=== PATIENT | male | born 1970 | race Caucasian/White ===

== ENCOUNTER 2019-12-05 03:52 | Observation (INO) | payer OTHER, SELFPAY ==
[2019-12-05] VITALS (15 sets, daily range): BP systolic 104–163; BP diastolic 70–112; PULSE 70–117; RESP 16–18; TEMP 36.2–37.1; O2SAT 95–99; BMI 24.0; BMI 25.5
--- NOTE | 2019-12-05 04:01 | CT_ITS ---
We are attempting to reach an attending provider to discuss findings. An addendum with communication details will be sent when the communication is complete. STUDY: CT ABDOMEN AND PELVIS WITH CONTRAST REASON FOR EXAM: Male, 49 years old patient with right lower quadrant abdominal pain and vomiting since 5 pm. Patient has elevated WBC count. RADIATION DOSAGE (If Supplied By Facility): CTDIvol = ( 26.2 ) mGy, DLP = ( 500.82 ) mGycm TECHNIQUE: Transaxial images were obtained from the dome of the diaphragm to the symphysis pubis without oral contrast. 100 ml of IV Isovue-300 was administered. Sagittal and coronal images were reconstructed. Individualized dose optimization techniques were used for this CT. COMPARISON: Prior comparison studies are not available for review at this time. FINDINGS: The visualized lung bases are unremarkable. The visualized portions of the heart are within normal limits. There are small hepatic cysts within the right lobe of liver with the largest measuring 7 mm in greatest dimension. Normal gallbladder and extrahepatic biliary system. Normal spleen. Normal pancreas. Normal bilateral adrenal glands. Normal right kidney. Normal left kidney. Normal visualized stomach. There is no evidence for dilated bowel, ascites or pneumoperitoneum. The small bowel has a grossly normal appearance. Descending and sigmoid colon is not distended which gives the appearance of thickened kelley. There is also localized narrowing of the mid transverse colon where there is abnormal thickening of the kelley. This may be the result of localized spasm versus a stricture. Most of the stool is visible in the right colon. There is a tubular, thick-walled appendix (>7mm), consistent with acute appendicitis. There is acute inflammation adjacent to the abnormal appendix. There is also an appendicolith at the base of the appendix. Normal abdominal aorta. There is venous distention of the inferior vena cava (IVC). Normal retroperitoneum. Normal urinary bladder. Normal abdominal wall. Normal osseous structures. CT/Abdomen/Pelvis W IV Cont ONLY IMPRESSION: 1. CT findings are consistent with acute uncomplicated appendicitis. 2. Questionable stricture versus spasm of the mid transverse colon. Electronically Signed: Denise Del Cid MD at 5:21 EST , Service support ,
--- NOTE | 2019-12-05 04:02 | ED.VIS.GEN ---
History of Present Illness Chief Complaint: Abd Pain Informant: Patient Narrative: Patient presents with lower abdominal pain for last 9 hours. Associated with multiple dry heaves. No vomiting. Normal bowel movements. Never had this before. No fevers or chills. Ate some chicken noodle soup for dinner. Current severity is moderate to severe. No home treatment. Hurts to push on it. Denies medical problems Past Medical History - Allergies and Home Meds Allergies/Adverse Reactions: Allergies erythromycin base Adverse Reaction (Verified 12/05/19 03:55) Vomiting Penicillins [PCN] Adverse Reaction (Verified 12/05/19 03:55) Unknown Primary Care Physician: [facility] [Primary Care Provider] - Prior records reviewed: Yes Past Medical History: None Surgical History: noncontributory Lives: With Family Smoking Status: Never smoker Alcohol: None Drugs: None Review of Systems General: Denies: Chills, Fever, Sweats Eyes: Denies: Visual changes - bilaterally, Diplopia ENT: Denies: Rhinorrhea, Sore throat Cardiovascular: Denies: Chest pain, Palpitations Respiratory: Denies: Dyspnea, Cough, Dyspnea on exertion Gastrointestinal: Reports: Abdominal pain, Nausea, - - Dry heaves. Denies: Vomiting, Diarrhea, Melena, Hematochezia Genitourinary: Denies: Dysuria, Hematuria, Frequency Musculoskeletal: Denies: Back pain, Extremity Pain Skin: Denies: Rash, Wounds Neurological: Denies: Headache, Weakness, Numbness Physical Exam Vital Signs/Narrative: Vital Signs Temp Pulse Resp BP Pulse Ox 12/05/19 03:53 97.2 F L 70 18 163/89 H 98 General: Well nourished, Well developed, No Acute Distress Head: Normocephalic, Atraumatic Eyes: Perrl, EOMI ENT: Moist mucous membranes, No rhinorrhea Neck: Supple, Nontender Cardiovascular: Regular rate, Regular rhythm, No murmurs Respiratory: No distress, CTA bilaterally, Chest nontender Abdomen: Soft, Nondistended, Normal bowel sounds, Tender - Tender in the periumbilical suprapubic and right lower quadrant. Negative for: Rebound tenderness, Grande's sign Back: Nontender, Normal Inspection Extremities: Nontender, No edema Skin: Normal color, No rash Neurological: Alert, Oriented x3, Cranial nerves II-XII grossly intact, Normal Strength, Normal Sensation Psychological: Normal affect, Normal Mood Diagnostic/Tx/Re-eval Impressions Abdomen/Pelvis CT 12/05/19 04:01 IMPRESSION: 1. CT findings are consistent with acute uncomplicated appendicitis. 2. Questionable stricture versus spasm of the mid transverse colon. Electronically Signed: Denise Del Cid MD at 5:21 EST , Service support , 12/05/19 04:01 Abdomen/Pelvis W IV Cont ONLY [CT] Stat Laboratory Results 12/05/19 12/05/19 04:00 04:00 WBC 17.7 H RBC 4.93 Hgb 14.9 Hct 43.8 MCV 88.8 MCH 30.2 MCHC 34.0 RDW Std Deviation 40.0 RDW Coeff of John 12.2 Plt Count 271 MPV 11.1 Immature Gran % (Auto) 0.500 Neut % (Auto) 87.2 H Lymph % (Auto) 6.7 L [place] % (Auto) 4.5 Eos % (Auto) 0.6 Baso % (Auto) 0.5 Absolute Neuts (auto) 15.5 H Absolute Lymphs (auto) 1.18 Nucleated RBC % 0 Reactive Lymphocytes 1+ Platelet Estimate ADEQUATE RBC Morphology NORM C+C Sodium 136 Potassium 3.5 Chloride 104 Carbon Dioxide 25.0 Anion Gap 7 BUN 18 Creatinine 1.11 Estim Creat Clear Calc 74.44 Est GFR (MDRD) Af Amer 90 Est GFR (MDRD) Non-Af 74 BUN/Creatinine Ratio 16.2 Glucose 142 H Calcium 9.2 Total Bilirubin 1.20 H AST 14 L ALT 23 Alkaline Phosphatase 91 Total Protein 8.5 H Albumin 4.4 Globulin 4.1 Albumin/Globulin Ratio 1.1 Lipase 102 - Medical Decision Making Given IV fluids Zofran Toradol and morphine. Lab work and CT abdomen pelvis with IV contrast obtained. Patient felt significantly better after treatment. Lab work shows a significant leukocytosis with left shift. Electrolytes renal function hepatic function and lipase unremarkable. CT shows a acute appendicitis with no perforation. Suspected spasm in the transverse colon noted as well. [facility] to do [facility] or beds at this time. They stated he should stay here. Patient discussed with our on-call surgeon Dr. Neil. Will be started on antibiotics and admitted ED Disposition - Plan for ED Patient: Disposition: Acute Care Hospital [facility] Diagnosis: Acute appendicitis
[2019-12-05 04:08] LABS: Absolute Lymphocyte Count 1.18 X10^3/uL (0.83-4.51); Absolute Neutrophil Count 15.5 X10^3/uL (2.0-7.7); Basophil# 0.08 X10^3/uL; Basophil% 0.5 % (0-1); Eosinophils% 0.6 % (0-5); Hematocrit 43.8 % (40-54); Hemoglobin 14.9 g/dL (13.0-16.5); Lymphocyte # 1.18 X10^3/ul (4.0); Lymphocyte % 6.7 % (19-41); Mean Corpuscular Hgb 30.2 pg (27.0-32.0); Mean Corpuscular Volume 88.8 fL (80-94); Mean Platelet Vol. 11.1 fl (6.2-12.0); Monocyte# 0.79 X10^3/uL; Monocyte% 4.5 % (0-10); NRBC Flagged by Analyzer 0 % (0-5); Neutrophil # 15.46 X10^3/uL (2.7-7.7); Neutrophil % 87.2 % (47-70); POSITIVE MORPHOLOGY YES; Platelet Count 271 K/mm3 (150-450); RBC Distribution Width CV 12.2 % (11.6-14.6); Red Blood Count 4.93 M/mm3 (4.6-6.2); White Blood Count 17.7 K/mm3 (4.4-11.0)
[2019-12-05] MEDS: Ondansetron 4 MG/2 ML Vial IV (04:09)
[2019-12-05] MEDS: Ketorolac 30 MG/ML Syringe IV (04:09)
[2019-12-05] MEDS: 0.9% Normal Saline 1,000 ML 1000 ML IV (04:09)
[2019-12-05 04:10] LABS: Differential Indicated SCAN CRITERIA MET
[2019-12-05] MEDS: Morphine 4 MG/ML Syringe IV (04:10)
[2019-12-05 04:23] LABS: ALB/GLOB Ratio 1.1 RATIO (0.9-2.4); AST(SGOT) 14 U/L (15-37); Alanine Aminotransfer ALT/SGPT 23 U/L (16-61); Albumin, Serum 4.4 g/dL (3.2-5.0); Alkaline Phosphatase 91 U/L (45-117); Anion Gap 7 (5-15); BUN 18 mg/dL (7-18); BUN/Creat Ratio 16.2 RATIO (10-20); Calcium,Total 9.2 mg/dL (8.5-10.1); Chloride 104 mmol/L (98-107); Creatinine, Serum 1.11 mg/dL (0.70-1.30); EST Glomerular Filtration Rate 74 mL/min (>60); Est Glom Filt Rate - Afr Amer 90 mL/min (>60); Estimated Creatinine Clearance 74.44 ml/min; Globulin 4.1 g/dL (2.2-4.2); Glucose 142 mg/dL (74-106); Lipase 102 U/L (73-393); Potassium 3.5 mmol/L (3.5-5.1); Protein, Total 8.5 g/dL (6.4-8.2); Sodium Level 136 mmol/L (136-145)
[2019-12-05 04:28] LABS: Platelet Estimate ADEQUATE (ADEQ); Reactive Lymphocyte 1+; Red Cell Morphology NORM C+C NORMAL (NORM C&C)
--- NOTE | 2019-12-05 05:24 | NURSING ---
TALKED TO THE [facility] AND THEY ASKED FOR A CHART TO BE FAXED BUT WE CAN KEEP PATIENT HERE FOR SURGERY.
[2019-12-05] MEDS: Ciprofloxacin 400 MG/200 ML BAG 200 MG IV (05:41)
[2019-12-05] MEDS: metroNIDAZOLE 500 MG/100 ML BAG 100 MG IV (05:58)
--- NOTE | 2019-12-05 05:58 | PCM.HP.STD ---
History of Present Illness Date of Admission: 12/05/19 The patient is a 49 year old M presented to the ER due to right lower quadrant pain which started at 5 PM yesterday. Patient did have nausea and vomiting with this. Last ate prior to [address] abdomen pelvis consistent with acute appendicitis, leukocytosis of 17. Patient is given Cipro & Flagyl IV in the ER for acute appendicitis. Patient has never had a colonoscopy. Past Medical History Allergies erythromycin base Adverse Reaction (Verified 12/05/19 03:55) Vomiting Penicillins [PCN] Adverse Reaction (Verified 12/05/19 03:55) Unknown Home Medications: Ambulatory Orders Medication Instructions Recorded NK 12/05/19 Surgical History: no surgical history Psychiatric History: No pertinent psych hx Lives: With Family Smoking Status: Never smoker Alcohol: None Drugs: None - *Family History Maternal History Items: No pertinent history Review of Systems Constitutional: Reports: Anorexia Eyes: Denies: Blurred vision HEENT: Denies: Difficulty Swallowing Cardiovascular: Denies: Chest Pain Respiratory: Denies: Shortness of Breath Gastrointestinal: Reports: Abdominal Pain, Nausea, Vomiting VTE Information - Inpt Only VTE Present on Admission: Yes VTE Mechan Device Prophylaxis: SCD's Patient Problems: Active and Suspected Problems Acute appendicitis (Acute) - Physical Exam Vitals/I&O's: Vital Signs Temp Pulse Resp BP Pulse Ox 98.3 F 96 18 131/86 H 95 12/05/19 05:45 12/05/19 05:45 12/05/19 05:45 12/05/19 05:45 12/05/19 05:45 Oxygen Delivery Method Room Air Weight: 153 lb 7.068 oz Body Mass Index (BMI) 24.0 General: Alert, Oriented x3, Cooperative, No apparent distress HEENT: Atraumatic Lungs: Normal air movement Cardiovascular: Regular rate Abdomen: Soft, Non-Distended, Tender - Right lower quadrant, no peritoneal signs Extremities: No clubbing, No cyanosis, No edema Neurological: Cranial nerves II-XII grossly intact Psych/Mental Status: Normal Affect Laboratory Results 12/05/19 04:00: WBC 17.7 H, RBC 4.93, Hgb 14.9, Hct 43.8, MCV 88.8, MCH 30.2, MCHC 34.0, RDW Std Deviation 40.0, RDW Coeff of John 12.2, Plt Count 271, MPV 11.1, Immature Gran % (Auto) 0.500, Neut % (Auto) 87.2 H, Lymph % (Auto) 6.7 L, [place] % (Auto) 4.5, Eos % (Auto) 0.6, Baso % (Auto) 0.5, Absolute Neuts (auto) 15.5 H, Absolute Lymphs (auto) 1.18, Nucleated RBC % 0, Reactive Lymphocytes 1+, Platelet Estimate ADEQUATE, RBC Morphology NORM C+C 12/05/19 04:00: Sodium 136, Potassium 3.5, Chloride 104, Carbon Dioxide 25.0, Anion Gap 7, BUN 18, Creatinine 1.11, Estim Creat Clear Calc 74.44, Est GFR (MDRD) Af Amer 90, Est GFR (MDRD) Non-Af 74, BUN/Creatinine Ratio 16.2, Glucose 142 H, Calcium 9.2, Total Bilirubin 1.20 H, AST 14 L, ALT 23, Alkaline Phosphatase 91, Total Protein 8.5 H, Albumin 4.4, Globulin 4.1, Albumin/Globulin Ratio 1.1, Lipase 102 Current Medications Ciprofloxacin (Cipro) 400 mg in 200 mls @ 200 mls/hr IV X1 ONE Stop: 12/05/19 06:28 Last Admin: 12/05/19 05:41 Dose: 200 mls/hr Documented by: Metronidazole (Flagyl) 500 mg in 100 mls @ 100 mls/hr IV X1 ONE Stop: 12/05/19 06:29 Assessment/Plan All Active Problems Acute appendicitis (Acute) 49-year-old male with acute appendicitis 1. Discussed procedure laparoscopic appendectomy, possible open, possible bowel resection along with the risk but not limited to bleeding, infection/abscess, injury to another organ (small bowel, colon, etc.), adhesion, hernia at incision sites, and anesthesia. Patient no further questions this time. We will proceed to the OR this morning. Lanny Neil M.D. Pager: [phone] [facility] [address] [place] [address], [address] [place] [address] Office: [phone] Code Visit Inpatient E&M: 52568 Init Hosp L1
--- NOTE | 2019-12-05 06:29 | ED.RN ---
THIS NURSE TOOK THIS PATIENT DOWN TO SURGERY. PATIENT WAS TRYING TO GET A HOLD OF HIS SISTER TO COME UP TO THE HOSPITAL. DR. TRNOCOSO MET US AT THE ENTRANCE TO THE OR SUITES.
[2019-12-05] MEDS: Bupiv/Epi 0.5% Mpf 30 ML Vial (07:25)
--- NOTE | 2019-12-05 07:30 | APP_PTH ---
PATIENT: JUANITO TOLEDO Jr. LOC: MS3 U#:[id number] AGE/SX: 49/M ROOM: VT318 RE12/05/[address]: Dr. Lanny Neil MD : 1970 BED: 1 DIS: 12/05/2019 SPEC #: [id number] RECD: 12/05/19 13:25 STATUS: SUZY REQ #: [id number] ANNA: 12/05/19 07:[address]: Lanny Neil DEPT: SURGICAL PATHOLOGY RECD BY: Gertrude Cota ENTERED: 12/05/19 14:48 SP TYPE: APPENDIX OTHR DR: MD La Nena Penaloza [facility] Tissues: Appendix, NOS Procedures: Surgery Specimen Level III HEADER OPERATION: Laparoscopic appendectomy PRE-OP DIAGNOSIS: Acute appendicitis TISSUE SUBMITTED: Appendix MICROSCOPIC DIAGNOSIS Appendix, appendectomy: Acute appendicitis and periappendicitis. SJ:raphael 12/06/19 MICROSCOPIC DESCRIPTION Slides are reviewed. GROSS DESCRIPTION Received is one container labeled with the patient's name and designated appendix. The specimen consists of a C-shaped appendix measuring 9 cm in length and up to 2.2 cm in diameter. The attached periappendiceal adipose tissue measures up to 1.5 cm in width. The serosa is congested. No obvious perforation is identified. The lumen is filled with fecal material. No fecalith is identified. Liquor Store Manager sections are submitted in one cassette. / OWEN:raphael 12/05/19 TC:2 CPT: 27445
--- NOTE | 2019-12-05 07:30 | PCM.OPRPT ---
Report of Operation Date of Procedure: 12/05/19 Pre-Operative Diagnosis: Acute appendicitis Post-Operative Diagnosis: Same Surgery/Procedure Performed:: Laparoscopic appendectomy Type of Anesthesia:: General/Supplemental Anesthesiologist: Zoran Shannon Special Medications: Cipro 400 mg and Flagyl 500 mg IV x1 given for acute appendicitis in the ER Specimen's removed: Appendix Estimated Blood Loss (mL): 10 cc Fluids Replaced: 1000 cc Description of Procedure: Indications: 49-year-old male presented to the ER with new right lower quadrant pain this morning. On workup he was found to have acute appendicitis on CT and a leukocytosis of 17. Patient was started on antibiotics in the ER for acute appendicitis-Cipro 400 mg x 1 and Flagyl 500 mg x 1. Description of the procedure: The patient was placed on operating table in supine position. General anesthesia was induced. A timeout was completed verifying correct patient, procedure, position and special equipment prior to beginning procedure. A Wolf catheter was placed. Abdomen was prepped and draped in usual sterile fashion. Incision was made in the natural skin line above the umbilicus with a 15 blade scalpel. The fascia was elevated and incised. Entry into the peritoneum was confirmed visually and no bowel was noted in the vicinity of the incision. The Zimmerman trocar was placed under direct vision. Abdomen insufflated with a pressure of 12-15 mmHg. Patient tolerated insertion well. The scope was inserted and the abdomen inspected. No injuries from initial trocar placement were noted. Minimal amount of fluid was seen in the right lower quadrant. An direct visualization 2 -5 mm trocars were placed one above the symphysis pubis and below the hairline and one in the left lower quadrant lateral to the rectus muscle. Care is taken to avoid injury to the bladder and inferior epigastric vessels. The table was placed in Trendelenburg position with the right side elevated. The appendix was grasped with atraumatic grasper and elevated. It was noted to be inflamed with a small amount of purulent material on the appendix. A window was developed in the mesoappendix at the point between the base of the appendix and the cecum. An endoscopic 45 mm linear cutting stapler blue load was then used to divide and staple the base of the appendix. Enseal was used to divide the mesoappendix. The appendix was withdrawn into the Zimmerman trocar after being placed endoscopically retrieval bag. Appendix was sent to pathology. The appendiceal stump was then irrigated and hemostasis was assured. Fluid was suctioned no other pathology was identified. Secondary trochars were removed under direct visualization. No bleeding was noted trocar sites. The laparoscope withdrawn and the umbilical trocar removed. The abdomen was allowed to collapse. Local anesthesia of 25 mL of 0.5% Marcaine was used at the incision sites. The umbilical trocar site was closed with the [id number] 0 Vicryl suture. The skin was closed up to clear sutures of 4-0 Monocryl and Steri-Strips. The patient was extubated. The patient tolerated the procedure well and was taken to the postanesthesia care unit in satisfactory condition. - Complications None
--- NOTE | 2019-12-05 07:32 | EKGRS_ITS ---
Test Reason : RHYTHYM CHANGE Blood Pressure : / mmHG Vent. Rate : 096 BPM Atrial Rate : 096 BPM P-R Int : 172 ms QRS Dur : 092 ms QT Int : 378 ms P-R-T Axes : 065 043 061 degrees QTc Int : 477 ms Normal sinus rhythm Normal ECG Confirmed by VANIA PAZ, JAILYN ([id number]), legal editor DESHAWN ROPER ([id number]) on 12/06/2019 12:34:40 PM Referred By: KARYNA Confirmed By:JAILYN CARO MD
--- NOTE | 2019-12-05 07:48 | PCM.PN.BLA ---
Progress Note At the end of case patient did go into SVT with heart rate of 144. Patient does not have any past medical history and does see a doctor yearly at the [facility]. Patient has not have an EKG prior to surgery. Will obtain EKG, BMP, magnesium in the PACU. Did consult to Dr. Og with cardiology as well. In PACU patient's heart rate was in the 110s and did drop to below 100 after about 10 or 15 minutes., Electrolytes are within normal limits and troponin was negative STROKE Vital Signs/Narrative: Vital Signs Temp Pulse Resp BP Pulse Ox 12/05/19 07:45 104 H 16 132/82 H 99 12/05/19 07:41 98.3 F 117 H 16 131/112 H 98 12/05/19 05:49 98.3 F 91 18 131/86 H 96 12/05/19 05:45 98.3 F 96 18 131/86 H 95 12/05/19 03:53 97.2 F L 70 18 163/89 H 98
--- NOTE | 2019-12-05 08:06 | ECHOD_ITS ---
Reason For Study: Arrhythmia Procedure This was a 2D Doppler, Color Flow transthoracic echocardiogram. Exam performed portable in patient room. Left Ventricle Normal LV size. Left ventricular systolic function is normal. The estimated ejection fraction is 60 %. No regional wall motion abnormalities noted. Right Ventricle Normal RV size. Normal systolic function. Atria Normal left atrium. Normal right atrium. Mitral Valve Normal mitral valve. Tricuspid Valve Normal tricuspid valve. Mild tricuspid valve insufficiency. Aortic Valve The aortic valve is not well visualized. Pulmonic Valve Normal pulmonic valve. Great Vessels Normal aortic root. The pulmonary artery is normal size. Normal inferior vena cava. Pericardium/Pleural No pericardial effusion. MMode/2D Measurements & Calculations LVIDd: 4.2 cm IVSd: 0.77 cm Ao root diam: 3.0 cm LVIDs: 2.6 cm LVPWd: 0.77 cm RVDd: 3.1 cm FS: 37.4 % LAV(MOD-bp): 25.7 ml LA A4 area: 10.7 cm2 LA dimension(2D): 2.6 cm LAV(MOD-bp) Indexed: 14.2 ml/m2 LAV(MOD-sp2): 27.6 ml LAV(MOD-sp4): 21.5 ml RA A4 area: 13.4 cm2 Time Measurements MV dec time: 0.22 sec Doppler Measurements & Calculations MV E max kevin: 83.9 cm/sec Lat Peak E' Kevin: 12.3 cm/sec Med Peak E' Kevin: 9.9 cm/sec MV A max kevin: 63.5 cm/sec E/E' lat: 6.8 E/E' med: 8.4 MV E/A: 1.3 Ao V2 max: 154.6 cm/sec LV V1 max: 138.7 cm/sec TV V2 max: 206.5 cm/sec Ao max P.6 mmHg LV V1 max P.7 mmHg TV max P.0 mmHg PA V2 max: 134.1 cm/sec TR max kevin: 199.1 cm/sec TR max P.9 mmHg Interpretation Summary Normal LV size. Left ventricular systolic function is normal. The estimated ejection fraction is 60 %. Mild tricuspid valve insufficiency. Ordering Physician: Chad Og Performed By: Maggi Kumari, WADE, RVT
[2019-12-05] MEDS: Lactated Ringers 1,000 ML 130 ML IV ×2 (08:15→10:21)
--- NOTE | 2019-12-05 08:15 | CON.PCM_ITS ---
Reason for Consult Date of Consultation: 12/05/19 Reason for Consultation: Fast heart rate History of Present Illness: The patient is a 49 year old M with no previous cardiac history who presented to the emergency room with right lower quadrant pain and was diagnosed as having acute appendicitis. He underwent appendectomy this morning. Shortly after the surgery was completed patient was noted to have short bursts of rapid narrow complex tachycardia. The above was asymptomatic. He has had no chest pain or shortness of breath or paroxysmal nocturnal dyspnea pedal edema he has had, to the best of his knowledge none of this previously. An EKG was done which demonstrated normal sinus rhythm with no acute changes I was called by the surgeon for further evaluation and management. Preoperative laboratory tests demonstrated a potassium of 3.5. The patient was seen in the postanesthesia care unit. [] Past Medical History Allergies/Adverse Reactions: Allergies erythromycin base Adverse Reaction (Verified 12/05/19 03:55) Vomiting Penicillins [PCN] Adverse Reaction (Verified 12/05/19 03:55) Unknown Home Medications: Ambulatory Orders Medication Instructions Recorded Oxycodone HCl/Acetaminophen 1 - 2 tab PO Q6H PRN PRN 4 Days 12/05/19 [Percocet 5/325] #20 tab Surgical History: no surgical history Psychiatric History: No pertinent psych hx - *Family History Maternal History Items: No pertinent history Lives: With Family Smoking Status: Never smoker Alcohol: None Drugs: None Review of Systems - Review of Systems General: Denies: Fever, Night Sweats, Fatigue HEENT: Denies: Vision Change Cardiovascular: Denies: Chest Discomfort, Shortness of Breath, Orthopnea, PND, Peripheral Edema, Palpitations, Lightheadedness, Dizziness, Near Syncope, Syncope Respiratory: Denies: Cough, Sputum Production, Hemoptysis Gastrointestinal: Denies: Hematemesis, Hematochezia, Melena Genitourinary: Denies: Dysuria, Hematuria Skin: Denies: Rash Neurological: Denies: Dizziness Psychiatric: Denies: Anxiety Endocrine: Denies: Heat Intolerance Objective: Vital Signs Temp Pulse Resp BP Pulse Ox 98.3 F 98 16 124/86 H 98 12/05/19 07:41 12/05/19 08:00 12/05/19 08:00 12/05/19 08:00 12/05/19 08:00 Oxygen Delivery Method Room Air Weight: 153 lb 7.068 oz Body Mass Index (BMI) 24.0 Intake and Output for Last 24 Hours 12/03/19 12/04/19 12/05/19 23:59 23:59 23:59 Intake Total 1300 / 1300 Balance 1300 / 1300 12/05/19 04:00: WBC 17.7 H, RBC 4.93, Hgb 14.9, Hct 43.8, MCV 88.8, MCH 30.2, MCHC 34.0, Plt Count 271, MPV 11.1, Immature Gran % (Auto) 0.500, Neut % (Auto) 87.2 H, Lymph % (Auto) 6.7 L, [place] % (Auto) 4.5, Eos % (Auto) 0.6, Baso % (Auto) 0.5, Absolute Neuts (auto) 15.5 H, Nucleated RBC % 0 12/05/19 04:00: Sodium 136, Potassium 3.5, Chloride 104, Carbon Dioxide 25.0, Anion Gap 7, BUN 18, Creatinine 1.11, Est GFR (MDRD) Af Amer 90, Est GFR (MDRD) Non-Af 74, BUN/Creatinine Ratio 16.2, Glucose 142 H, Calcium 9.2, Total Bilirubin 1.20 H Rhythm: EKG: ECHO: Stress Test: Cardiac Cath: PCI: CT Surgery: Holter monitor: EPS: PPM: CXR: Chest CT Scan: Assessment/Plan 1. Paroxysmal atrial tachycardia * Patient presents with postoperative paroxysmal atrial tachycardia. My recommendation at this time would be to obtain an echo and assess his left ventricular function. I would not recommend starting him on any beta-anali at this particular time. Repeat magnesium and potassium level is pending. And depending on the results of the above further recommendations will be made. * He can be transferred to the third floor on telemetry monitoring. The above has been discussed with the patient, the PACU nurses, and the surgeon. * If he has further tachycardia I would recommend short small aliquots of intravenous beta-anali until patient can take orally. * * Thank you for allowing me to participate in the care of your patient. Please don't hesitate to call if any issues arise
[2019-12-05 08:33] LABS: Anion Gap 5 (5-15); BUN 15 mg/dL (7-18); BUN/Creat Ratio 14.7 RATIO (10-20); Calcium,Total 8.2 mg/dL (8.5-10.1); Chloride 106 mmol/L (98-107); Creatinine, Serum 1.02 mg/dL (0.70-1.30); EST Glomerular Filtration Rate 82 mL/min (>60); Est Glom Filt Rate - Afr Amer 99 mL/min (>60); Glucose 146 mg/dL (74-106); Magnesium 1.7 mg/dL (1.6-2.6); Potassium 3.7 mmol/L (3.5-5.1); Sodium Level 137 mmol/L (136-145)
--- NOTE | 2019-12-05 11:19 | DCINST_ITS ---
Discharge Diet: Light diet - advance as tolerated Discharge Activity: May not drive while taking narcotic pain medications. Lifting Restrictions: No lifting > 20 pounds x 3 weeks, no strenuous exercise for 5 wks Call your doctor if your incision/area has: Continuous Slow Oozing, Sudden Increased Bleeding, Increased Pain/ Swelling, Increased Redness, Foul Smelling Discharge, Swelling at the incision site Call your doctor if you observe: Fever of 101 or Higher Remove Dressing in (days):: 1 - Area of move op sites tomorrow, Steri-Strips can for 7 to 10 days for not follow-up in 10 days okay to remove Additional Instructions: Okay to take ibuprofen 400-600 mg PO q6hr PRN along with the Percocet. Avoid Tylenol since there is already Tylenol in the Percocet. Take all pain meds with food. Percocet can cause constipation recommend taking daily stool softener (i.e. Colace/docusate) while taking the pain meds. Recommend starting some MiraLAX in 1 to 2 days if no bowel movement. If still no bowel movement the following day recommend taking magnesium citrate half the bottle and waiting 4-6 hours if still no results take the other half the bottle. Medications to take at Discharge Oxycodone HCl/Acetaminophen [Percocet 5/325] 1 - 2 tab PO Q6H PRN PRN 4 Days #20 tab 12/05/19 Allergies/Adverse Reactions: Allergies erythromycin base Adverse Reaction (Verified 12/05/19 03:55) Vomiting Penicillins [PCN] Adverse Reaction (Verified 12/05/19 09:58) do not know parents alway told me not to have PCN The following prescriptions were given: Oxycodone HCl/Acetaminophen [Percocet 5/325] 1 - 2 tab PO Q6H PRN PRN 4 Days #20 tab PRN Reason: Pain Score 4-10/10 Transmission Status: Received by [facility] [Primary [facility] Provider] - Test Results: Test results from this visit will be discussed in further detail at your follow- up appointment, if applicable. Please Follow Up With: Lanny Neil MD - Any issues after 5 PM and on the weekends call [phone] with any concerns When: Call the office [phone] for a follow-up appointment in about 2 weeks
== END 2019-12-05 17:18 | disposition home or self-care (01) ==
LOC: ED 05:28 → SDC 05:54 → MS3 05:54 → SDC 09:18 → MS3 09:18
PROVIDERS: Admitting Provider Surgery; Emergency Provider Emergency Medicine; Visit Provider Surgery
PROC: 0DTJ4ZZ Resection of Appendix, Percutaneous Endoscopic Approach (ICD-10-PCS; CPT 44970; principal; 2019-12-05 07:10)
DX: K35.80 Unspecified acute appendicitis (principal); I47.1 Supraventricular tachycardia
CPT/HCPCS: 00840; 44970; 36415; 36592; 74177; 80048; 80053; 83690; 83735; 84484; 85025; 88304; 93005; 93306; 96374; 96375; 99218; 99251; 99281; 99283; J7030; J7050; J7120; Q9967; A4216; C1760; G0378; G0463; J0744; J2405

== ENCOUNTER 2021-11-17 08:00 | Emergency (ER) | payer OTHER, SELFPAY ==
[2021-11-17 08:01] VITALS: BP 141/79; PULSE 80; RESP 18; TEMP 36.4; O2SAT 97; BMI 25.0
--- NOTE | 2021-11-17 08:16 | EX.ED.DYSGE1 ---
HPI History of Present Illness Chief Complaint: Fever Informant: patient Onset/Context/Timing Onset: Days (5) Context: Gradual Onset Timing: Continuous Quality: Aching Location: Generalized Worsened by: Nothing Relieved by: Nothing Associated Symptoms Associated Symptoms: Chest pain Narrative Narrative: Patient presents with fever that has been intermittent over the last 5 days. Patient states he was seen at the urgent care yesterday and was diagnosed with COVID-19. Patient states he was given a prescription for ibuprofen. Patient states this has been helping with his fevers. Patient states she was told that if he did not feel any better he should come to the emergency department because he had pneumonia in the past and was hospitalized for 2 months. Patient admits to coughing up some green-yellow sputum. Patient admits to generalized body aches. Patient states his temperature at home has been up to 102. PFSH [facility] Medical History No pertinent past medical history Pneumonia Allergy/AdvReac Type Severity Reaction Status Date / Time erythromycin base AdvReac Vomiting Verified 11/17/21 08:00 Penicillins [PCN] AdvReac do not Verified 11/17/21 08:00 know Family History Mother Heart disease Surgical History History of appendectomy (~12/2019) Social History Smoking Status: Never smoker ROS ROS ED Constitutional Constitutional ED: Reports fever(s); Denies chills Eyes Eyes: Denies blurry vision or change in vision ENT ENT ED: Denies rhinorrhea or sore throat Cardiovascular Cardiovascular: Reports chest pain; Denies palpitations Respiratory/Chest Respiratory/Chest: Reports cough and dyspnea Gastrointestinal Gastrointestinal: Denies nausea or vomiting Genitourinary Genitourinary ED: Denies dysuria or hematuria Musculoskeletal Musculoskeletal: Reports myalgias Integumentary Denies abscess or rash Neurologic Neurologic: Denies headache(s) or weakness Allergic/Immunologic Allergic/Immunologic ED: Denies mouth swelling or urticaria EXAM Physical Exam Const Vital Signs: 11/17/21 08:01 Temperature 97.6 F L Temperature Source Oral Pulse Rate 80 Respiratory Rate 18 Blood Pressure 141/79 H Blood Pressure Mean 99 Pulse Ox 97 Oxygen Delivery Method Room Air Positive well nourished and well developed General Appearance ED: well developed HEENT Reports moist mucous membranes Neck supple and no JVD Resp normal respiratory effort and clear to auscultation bilaterally Cardio regular rate, regular rhythm and no murmurs GI normal to inspection, nondistended, normoactive bowel sounds and non-tender Palpation: soft Extremity normal to inspection General Extremety ED: Negative for edema or tenderness General Extremity: Negative for edema Neuro oriented x3, CN's II-XII intact bilaterally and no sensory deficits noted Sensorium / Orientation: alert Motor Exam: strength 5/5 throughout Psych mental status grossly normal Skin no rashes or lesions noted MDM MDM MDM Narrative Medical decision making narrative: Patient was given 4 puffs of an albuterol inhaler. Portable 1 view chest x-ray was obtained. On my interpretation, lung dow are clear. There is normal cardiac silhouette. Bony thorax is normal. There is no acute process noted. Radiologist also interpreted the x-ray and agrees. Patient was advised of his findings. Patient was given a referral for monoclonal antibody therapy. Patient was instructed to follow-up with his primary care physician in 5 to 7 days. Patient understood and was agreeable with the plan. All questions were answered. The following information was communicated to the patient or caregiver: Monoclonal antibody infusion is not an FDA approved drug. The FDA has authorized the emergency use of monoclonal antibody therapy. The patient had the option to refuse or accept treatment with monoclonal antibody therapy. The patient was informed that the number of people treated with monoclonal antibody therapy at this time is small. The potential benefits and the potential risks of monoclonal antibody therapy are not fully known. Potential benefits of monoclonal antibody include a reduced risk of progressing to severe COVID-19 infection. Potential risks or side effects of monoclonal antibody therapy include allergic reactions, side effects from injection including brief pain, bleeding, bruising of the skin, soreness, swelling, possible infection at the infusion site. The patient stated understanding of this information communicated and wished to proceed with monoclonal antibody infusion therapy. The patient is appropriate for the Monoclonal Antibody Infusion. The patient states understanding of this information communicated and wishes to proceed with monoclonal antibody infusion therapy. Patient agrees to receive either Balanivimab/Etesvimab or Casirivimab/Imdevimab upon availability. Radiography Chest X-Ray - ED: 1 View, Read by ED Physician, Read by Radiologist and Normal Diagnostic Testing: Clinical Impression(s) from Imaging Studies Chest X-Ray 11/17/21 08:20 IMPRESSION: Normal x-ray examination of the chest. Electronically Signed: Harsh Chowdhury MD at 8:49 EST Tel , Service support , Discharge Plan Triage Chief Complaint: Fever ED Provider: Zoran Jo Dx/Rx/DC Orders Clinical Impression: COVID Instructions: Coronavirus Disease 2019 (COVID-19): Caring for Yourself or Others Stand Alone Forms: Monoclonal Antibody Referral [facility] Provider[facility] [facility] [[facility] Provider] - Disposition Disposition: Home, Self Care
--- NOTE | 2021-11-17 08:20 | RAD_ITS ---
STUDY: X-RAY CHEST REASON FOR EXAM: Male, 51 years old. cough TECHNIQUE: Single AP portable view of the chest. COMPARISON: None. FINDINGS: The lungs are clear and expanded. There is no demonstrated pleural abnormality. Normal size heart. Normal mediastinum and jeronimo. Normal visualized pulmonary arteries. Normal visualized aortic arch and descending thoracic aorta. Normal visualized thoracic spine. Normal visualized ribs, clavicles, and shoulders. There is no demonstrated abnormality of the visualized soft tissue structures of the upper abdomen. RAD/Chest 1 View (Portable) IMPRESSION: Normal x-ray examination of the chest. Electronically Signed: Harsh Chowdhury MD at 8:49 EST Tel , Service support ,
[2021-11-17 08:58] VITALS: BP 126/77; PULSE 71; RESP 15; O2SAT 97
== END 2021-11-17 08:59 | disposition home or self-care (01) ==
PROVIDERS: Emergency Provider Emergency Medicine; Visit Provider Emergency Medicine
DX: U07.1 COVID-19 (principal); Z87.01 Personal history of pneumonia (recurrent)
CPT/HCPCS: 71045; 99282

== ENCOUNTER 2023-11-26 12:20 | Emergency (ER) | payer OTHER, SELFPAY ==
[2023-11-26 12:23] VITALS: BP 166/108; PULSE 83; RESP 16; TEMP 36.6; O2SAT 98; BMI 27.5
--- NOTE | 2023-11-26 13:16 | EKG12_ITS ---
Test Reason : DYSRHYTHMIA Blood Pressure : / mmHG Vent. Rate : 075 BPM Atrial Rate : 075 BPM P-R Int : 170 ms QRS Dur : 084 ms QT Int : 374 ms P-R-T Axes : 025 021 041 degrees QTc Int : 417 ms Normal sinus rhythm Normal ECG Confirmed by VANIA PAZ, JAILYN ([id number]), society editor ANTWAN GIBSON ([id number]) on 11/27/2023 9:52:57 AM Referred By: Sally Fulton Confirmed By:JAILYN CARO MD
--- NOTE | 2023-11-26 13:16 | RAD_ITS ---
STUDY: X-RAY - LEFT HAND, ATTENTION FIFTH FINGER REASON FOR EXAM: Male, 53 years old. Trauma. Pain. TECHNIQUE: view(s) of the finger were obtained. COMPARISON: None. FINDINGS: Normal metacarpal head. Normal metacarpophalangeal joint. Normal proximal phalanx. Normal middle phalanx. Normal distal phalanx. Normal proximal interphalangeal joint. Normal distal interphalangeal joint. Soft tissue swelling over the distal fifth finger. RAD/Finger(s) Min 2 Views IMPRESSION: Soft tissue swelling with no osseous abnormality. Electronically Signed: Abdirahman Winslow MD at 13:56 EST ,
[2023-11-26 13:30] LABS: Absolute Lymphocyte Count 1.54 X10^3/uL (0.83-4.51); Absolute Neutrophil Count 7.1 X10^3/uL (2.0-7.7); Basophil# 0.13 X10^3/uL; Basophil% 1.4 % (0-1); Eosinophil# 0.24 X10^3/uL; Eosinophils% 2.5 % (0-5); Hematocrit 43.3 % (40-54); Hemoglobin 14.3 g/dL (13.0-16.5); Lymphocyte # 1.54 X10^3/ul (0.83-4.51); Lymphocyte % 16.1 % (19-41); Mean Corpuscular Hgb 29.5 pg (27.0-32.0); Mean Corpuscular Volume 89.5 fL (80-94); Mean Platelet Vol. 11.7 fl (6.2-12.0); Monocyte# 0.53 X10^3/uL; Monocyte% 5.5 % (0-10); NRBC Flagged by Analyzer 0 % (0-5); Neutrophil # 7.07 X10^3/uL (2.7-7.7); Neutrophil % 74.1 % (47-70); Platelet Count 234 K/mm3 (150-450); RBC Distribution Width CV 12.9 % (11.6-14.6); RBC Distribution Width SD 42.4 fl (35.1-43.9); Red Blood Count 4.84 M/mm3 (4.6-6.2); White Blood Count 9.6 K/mm3 (4.4-11.0)
--- NOTE | 2023-11-26 13:35 | RAD_ITS ---
STUDY: X-RAY CHEST REASON FOR EXAM: Male, 53 years old. Acute mental status changes. TECHNIQUE: Frontal and lateral views of the chest. COMPARISON: 11/17/2021. FINDINGS: Stable mild hyperinflation. There is no demonstrated pleural abnormality. Normal size heart. Normal mediastinum and jeronimo. Normal visualized pulmonary arteries. Normal visualized aortic arch and descending thoracic aorta. Normal visualized thoracic spine. Normal visualized ribs, clavicles, and shoulders. No abnormality of the visualized soft tissue structures of the upper abdomen. RAD/Chest PA and Lateral IMPRESSION: Stable chest with no acute or active cardiopulmonary disease. Electronically Signed: Abdirahman Winslow MD at 13:55 EST ,
[2023-11-26 13:42] LABS: Anion Gap 6 (5-15); BUN 11 mg/dL (7-18); BUN/Creat Ratio 11.6 RATIO (10-20); Calcium,Total 9.4 mg/dL (8.5-10.1); Chloride 107 mmol/L (98-107); Creatinine, Serum 0.95 mg/dL (0.70-1.30); EST Glomerular Filtration Rate 88 mL/min (>60); Est Glom Filt Rate - Afr Amer 106 mL/min (>60); Estimated Creatinine Clearance 87.06 ml/min; Glucose 110 mg/dL (74-106); Potassium 3.7 mmol/L (3.5-5.1); Sodium Level 140 mmol/L (136-145)
[2023-11-26 14:12] VITALS: BP 171/107; PULSE 89; RESP 16; O2SAT 98
[2023-11-26] MEDS: Ibuprofen 600 MG Tablet PO (14:18)
--- NOTE | 2023-11-26 14:57 | EX.ED.DYSGE1 ---
HPI History of Present Illness Chief Complaint: Alt LOC Informant: patient Narrative Narrative: Patient is a 53-year-old male denies significant past medical history presenting for mental status change after dental procedure. Patient apparently had a 2-hour dental extraction at [facility]. Apparently patient received 4 ampoules of articaine 4% with epinephrine throughout the procedure. Per note written by the dentist he received a total of 1.7 mL x 4. After the procedure (did not receive anything else) he apparently was confused and altered. He did not know the date when asked. His blood pressure was high (164/110). He had a heart rate of 94 per note written by the dentist. He had some apple juice. Patient currently feels he is back to normal has no complaints and states he just wants to leave. I does have a strong family history of cardiac disease, his mother at age 38 for what sounds like a ruptured AAA continues before that had a heart valve replacement and his father has congestive heart failure. Patient denies any associated numbness except on the right lower jaw where he had his dental work and subsequently had some slurred speech with this, denies any vision changes. Is otherwise been in his normal state of health. [facility] next [facility]. He states he gets blood work yearly which has been normal. Denies any chest pain or difficulty breathing. Does note that he actually slammed his left pinky finger is today and develops pain and bruising underneath the nail and at the pad of the finger. Is not sure if this is related to anything that occurred today. No other complaints or concerns at this time. [facility] Medical History No pertinent past medical history Pneumonia Home Medications ibuprofen 600 mg tablet 600 mg PO Q6H PRN pain #20 tabs 11/26/23 [Rx Last Taken Unknown] Allergy/AdvReac Type Severity Reaction Status Date / Time erythromycin base AdvReac Vomiting Verified 11/26/23 12:22 Penicillins [PCN] AdvReac do not Verified 11/26/23 12:22 know Family History Mother Heart disease Surgical History History of appendectomy (~12/2019) Social History Smoking Status: Never smoker ROS ROS ED Constitutional Constitutional ED: Reports other Details: Episode of dizziness ; Denies chills or fever(s) Eyes Eyes: Denies blurry vision or change in vision ENT ENT ED: Reports other Details: right lower dental pain Cardiovascular Cardiovascular: Denies chest pain or palpitations Respiratory/Chest Respiratory/Chest: Denies cough, dyspnea or dyspnea on exertion Gastrointestinal Gastrointestinal: Denies abdominal pain, nausea or vomiting Musculoskeletal Musculoskeletal: Reports other Details: left pinky finger pain and injury ; Denies arthralgias or myalgias Integumentary Denies rash Neurologic Neurologic: Denies headache(s), paresthesias or weakness Psychiatric Psychiatric: Denies anxiety Hematologic/Lymphatic Hematologic/Lymphatic: Denies easy bleeding or easy bruising EXAM Physical Exam Const Vital Signs: 11/26/23 12:23 11/26/23 14:12 Temperature 98 F Temperature Source Temporal Pulse Rate 83 89 Respiratory Rate 16 16 Blood Pressure 166/108 H 171/107 H Blood Pressure Mean 127 128 Pulse Ox 98 98 Oxygen Delivery Method Room Air Room Air Positive well nourished and well developed General Appearance ED: well developed HEENT Reports TM's clear and moist mucous membranes HEENT Narrative: Patient has evidence of recent dental procedure to the right lower second molar. No active bleeding. Handling his secretions. Does have a mild right facial droop and depression of the right side of the tongue which is consistent with nerve block. Negative for trauma Tympanic Membrane ED: Yes TM's clear Eyes PERRL and EOMs intact bilaterally Neck supple Chest Wall inspection of chest normal and palpation of chest normal Resp normal respiratory effort and clear to auscultation bilaterally Cardio regular rate, regular rhythm and no murmurs GI normal to inspection, nondistended, normoactive bowel sounds and non-tender Extremity normal to inspection Extremity Narrative: No obvious deformity. There is tenderness and ecchymosis to the left distal phalanx with an associated subungual hematoma that is approximately 70% of the proximal nail. Normal range of motion of the finger with no obvious flexor or extensor injury. General Extremety ED: Negative for edema General Extremity: Negative for edema Neuro oriented x3 Neuro Narrative: Symmetric forehead with sensation intact to the forehead however paresthesias of the right lower face Sensorium / Orientation: alert and orientation impaired Motor Exam: strength 5/5 throughout; Negative for general weakness Psych mental status grossly normal Skin no rashes or lesions noted and no wounds Skin Narrative: No open wounds or bleeding. Ecchymosis noted to the left distal pinky and associated left subungual hematoma MDM MDM MDM Narrative Medical decision making narrative: Patient is evaluated for an episode of mental status change. I am not sure if it was associated with a low blood sugar episode, some type of cardiac events or less likely TIA. Given that it is more of a global confusion I really do not think this was neurologic. His NIH is 0. He does have right facial droop however it is localized to the facial nerve and I think associated with his nerve block associate with his dental procedure. It does resolve in the ER as the nerve block wears off. Discussed that CT of the brain would be nonspecific at this time and is a differential includes TIA would not rule this out and he would need an MRI. Patient is comfortable deferring CT of the brain at this time. He is acting appropriately and has capacity. EKG shows normal sinus rhythm with no acute ischemic changes and no arrhythmia. Patient did not receive a toxic dose of anesthetic and I do not think this was an arrhythmia. His CBC and CMP are normal. He is not having any chest pain so do not think he needs a cardiac workup. Is also significant for mildly elevated blood pressure. Patient is given a dose of Motrin for pain as his dental block starts to wear off he starts to have some right-sided mandibular pain. No significant bleeding the ER. X-ray of the finger reviewed by myself as well as radiology does not show any acute fracture. The nail was trephinated with release of a couple cc of blood and improvement of his symptoms. Chest x-ray viewed by myself as well as radiology does not show any acute process. Patient counseled that the cause of this episode is not clear. Will be discharged home at this time. He is not interested in observation admission for MRI for definitive rule out of a TIA. Is given return precautions. Is counseled that his symptoms worsen if he has any other recurrent symptoms he should return to the emergency room as TIAs can have stuttering nature's and result in a larger stroke in the future. Again I do not really think he had an acute neurologic event and I think this is probably more associated with having a 2-hour dental procedure. Is he did not have any associated chest pain and has normal EKG I do not think he requires a troponin level. Patient and family agreeable plan of care. Patient discharged home in stable condition. Lab Data Attestation: I reviewed the patient's lab results. Labs: Laboratory Results - last 24 hr 11/26/23 12:30 WBC 9.6 RBC 4.84 Hgb 14.3 Hct 43.3 MCV 89.5 MCH 29.5 MCHC 33.0 RDW Std Deviation 42.4 RDW Coeff of John 12.9 Plt Count 234 MPV 11.7 Immature Gran % (Auto) 0.400 Neut % (Auto) 74.1 H Lymph % (Auto) 16.1 L Moca % (Auto) 5.5 Eos % (Auto) 2.5 Baso % (Auto) 1.4 H Absolute Neuts (auto) 7.1 Absolute Lymphs (auto) 1.54 Nucleated RBC % 0 Sodium 140 Potassium 3.7 Chloride 107 Carbon Dioxide 27.0 Anion Gap 6 BUN 11 Creatinine 0.95 Estim Creat Clear Calc 87.06 Est GFR (MDRD) Af Amer 106 Est GFR (MDRD) Non-Af 88 BUN/Creatinine Ratio 11.6 Glucose 110 H Calcium 9.4 Radiography Chest X-Ray - ED: 2 View, Read by ED Physician, Read by Radiologist and No Acute Disease Diagnostic Testing: Clinical Impression(s) from Imaging Studies Finger X-Ray 11/26/23 13:16 IMPRESSION: Soft tissue swelling with no osseous abnormality. Electronically Signed: Abdirahman Winslow MD at 13:56 EST , Chest X-Ray 11/26/23 13:35 IMPRESSION: Stable chest with no acute or active cardiopulmonary disease. Electronically Signed: Abdirahman Winslow MD at 13:55 EST , Rhythm Strip Rhythm Strip: Sinus Rhythm Rate: 75 Ectopy: None EKG Initial EKG: Attestation: I personally reviewed and interpreted this EKG as follows: Interpretation: Sinus Rhythm Comments: Normal sinus rhythm at a rate of 75 bpm Normal axis Normal intervals Normal ST segments Discharge Plan Triage Chief Complaint: Alt LOC ED Provider: Sally Fulton Dx/Rx/DC Orders Clinical Impression: Altered awareness, transient, Subungual hematoma of left little finger Instructions: ED ALOC, ED Finger Contusion, ED Subungual Hematoma Prescriptions: New ibuprofen 600 mg tablet 600 mg PO Q6H PRN (Reason: pain) Qty: 20 0RF Primary Care Provider: [facility] Ref[facility] [facility] [Primary [place] Provider] - Activity Restrictions/Additional Instructions: The cause of your altered mental status symptoms is not clear today however your workup is largely normal. Your EKG is normal. Please alternate ibuprofen and Tylenol as needed for dental pain as well as pain of your finger. You have been prescribed 600 mg ibuprofen. 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 Next of kin: [place] law dictates a PRIORITY LIST for identifying legal decision-maker/legal next of kin in the following order (LNOK): 1st: The patient?s legal guardian, if any 2nd: The patient's spouse (if status is questionable, consult Risk Management) 3rd: The patient?s adult child(bee) (majority, if multiple children) 4th: The patient?s parents 5th: The patient?s adult siblings (majority, if multiple children siblings)
== END 2023-11-26 15:23 | disposition home or self-care (01) ==
PROVIDERS: Emergency Provider Emergency Medicine; Referring Provider Emergency Medicine; Visit Provider Emergency Medicine
DX: R41.82 Altered mental status, unspecified (principal); R03.0 Elevated blood-pressure reading, without diagnosis of hypertension; S60.152A Contusion of left little finger with damage to nail, initial encounter; X58.XXXA Exposure to other specified factors, initial encounter; Z98.818 Other dental procedure status
CPT/HCPCS: 71046; 73140; 80048; 85025; 93005; 99285; A4216

== ENCOUNTER 2024-08-04 06:15 | Emergency (ER) | payer OTHER, SELFPAY ==
[2024-08-04 06:16] VITALS: BP 140/99; PULSE 102; RESP 18; TEMP 36.7; O2SAT 97; BMI 25.0
[2024-08-04 06:18] VITALS: BP 140/99; PULSE 105; RESP 17; TEMP 36.7; O2SAT 96
--- NOTE | 2024-08-04 06:35 | EDS_ITS ---
HPI History of Present Illness Chief Complaint: General Illness Informant: patient Narrative Narrative: Patient is a 54-year-old male with past medical history of pneumonia and appendicitis. He states on Thursday he developed a fever at home and this persisted throughout Thursday. He states with the fever he had generalized abdominal discomfort with nausea and recurrent bouts of loose stool/diarrhea. He states he has not had a fever since Thursday night/Thursday but nausea and recurrent bouts of loose stool/diarrhea have persisted. He states that the diarrhea occurs no matter what as it will wake him from sleep and still occur if he does not even eat or drink. He denies any travel outside the country or recent antibiotic use livestock exposure or camping activities. He states that he had an EGD and colonoscopy roughly 6 months ago and these were normal and denies any history of ulcerative colitis or Crohn's disease. He denies any known sick contacts but because of his persistent symptoms and increasing fatigue he presents for evaluation. [facility] Medical History Pneumonia No pertinent past medical history Home Medications ?Medication ?Instructions ?Recorded ?Last Taken ?Type diphenoxylate-atropine 2.5 1 tab PO 4X/DAY PRN diarrhea 5 08/04/24 Unknown Rx mg-0.025 mg tablet (Lomotil) days #20 tabs Allergy/AdvReac Type Severity Reaction Status Date / Time erythromycin base AdvReac Vomiting Verified 08/04/24 06:16 Penicillins (PCN) AdvReac do not Verified 08/04/24 06:16 know Family History Mother Heart disease Surgical History History of appendectomy (~12/2019) Social History Smoking Status: Never smoker ROS ROS ED Constitutional Constitutional ED: Reports chills, fever(s) and other Details: Positive fatigue Eyes Eyes: Denies blurry vision or change in vision ENT ENT ED: Denies rhinorrhea or sore throat Cardiovascular Cardiovascular: Denies chest pain Respiratory/Chest Respiratory/Chest: Denies cough or dyspnea Gastrointestinal Gastrointestinal: Reports diarrhea and nausea; Denies abdominal pain, melena or vomiting Genitourinary Genitourinary ED: Denies dysuria Musculoskeletal Musculoskeletal: Reports myalgias Integumentary Denies rash Neurologic Neurologic: Reports headache(s) and weakness Hematologic/Lymphatic Hematologic/Lymphatic: Denies easy bleeding or easy bruising EXAM Physical Exam Const Vital Signs: 08/04/24 06:16 08/04/24 06:18 08/04/24 06:18 Temperature 98.0 F 98.0 F Temperature Source Oral Oral Pulse Rate 102 H 105 H Respiratory Rate 18 17 Respiratory Effort Normal Respiratory Pattern Normal Blood Pressure 140/99 H 140/99 H Blood Pressure Mean 112 112 Pulse Ox 97 96 Oxygen Delivery Method Room Air Room Air Positive well nourished and well developed General Appearance ED: well developed; Negative for pallor HEENT Reports dry mucous membranes HEENT Narrative: Mucous membranes are dry and tacky No tongue or lip swelling no oral lesions no airway edema or compromise No secondary findings in the posterior pharynx to suggest infection Mouth ED: Yes dry mucous membranes Mouth: dry mucous membranes Eyes PERRL and EOMs intact bilaterally General Eye ED: Negative for scleral icterus Neck supple Neck Narrative: No nuchal rigidity or meningeal signs Resp normal respiratory effort and clear to auscultation bilaterally Cardio regular rhythm Rate: tachycardic and other Other Details: Tachycardic rate with regular rhythm GI non-tender, non-distended and no masses GI Narrative: Abdomen is soft and nondistended with hyperactive bowel sounds. There is no pain with palpation. No voluntary guarding or rigidity. No pulsatile mass or fluid wave. Auscultation: hyperactive bowel sounds Palpation: soft Extremity normal to inspection Neuro oriented x3, CN's II-XII intact bilaterally and no sensory deficits noted Sensorium / Orientation: alert Motor Exam: strength 5/5 throughout Psych mental status grossly normal Skin no rashes or lesions noted and No skin turgor normal Skin Narrative: Skin turgor is increased General Skin Exam: Negative for jaundice or pallor MDM MDM MDM Narrative Medical decision making narrative: Patient presented to the ER hypertensive otherwise with stable vital. He r eported 6 days of nausea with recurrent bouts of loose stool/diarrhea and he reports that symptoms began initially with fevers and chills. She denies any history of autoimmune intestinal disease such as ulcerative colitis or Crohn's disease and he denies any cause for infectious diarrhea such as recent antibiotic use for C. difficile or travel outside the country for E. coli infection. As he does not have abdominal pain with palpation or peritoneal signs I do not feel the need for an emergent CT scan. However based on his symptoms and his physical exam showing dehydration there is concern he has now developed acute kidney injury or has severe electrolyte abnormality. His symptom profile was also concerning for COVID. Therefore a viral swab will be obtained as well as basic laboratory values and the patient will be hydrated with 2 L of IV fluid. At this time the patient's labs and response to treatment are still pending. Therefore his care will be signed out to the day physician Dr. Clark. History & Record Review Discussion w/independent historian: Patient Lab Data Labs: Laboratory Results - last 24 hr 08/04/24 06:17 WBC 9.5 RBC 5.32 Hgb 15.4 Hct 46.1 MCV 86.7 MCH 28.9 MCHC 33.4 RDW Std Deviation 40.0 RDW Coeff of John 12.7 Plt Count 337 MPV 11.0 Immature Gran % (Auto) 0.300 Neut % (Auto) 53.8 Lymph % (Auto) 27.0 Jennings % (Auto) 12.7 H Eos % (Auto) 4.8 Baso % (Auto) 1.4 H Absolute Neuts (auto) 5.1 Absolute Lymphs (auto) 2.58 Nucleated RBC % 0 Sodium 138 Potassium 3.6 Chloride 103 Carbon Dioxide 28.0 Anion Gap 7 BUN 9 Creatinine 1.24 Estim Creat Clear Calc 60.74 Est GFR (MDRD) Af Amer 78 Est GFR (MDRD) Non-Af 64 BUN/Creatinine Ratio 7.3 L Glucose 104 Calcium 9.6 Magnesium 1.9 Total Bilirubin 0.60 Direct Bilirubin 0.14 AST 10 L ALT 15 L Alkaline Phosphatase 156 H Total Protein 8.3 H Albumin 3.4 Globulin 4.9 H Lipase 28 Discharge Plan Triage Chief Complaint: General Illness ED Provider: Gerry Gomez Dx/Rx/DC Orders Clinical Impression: Dehydration, Diarrhea Instructions: ED Dehydration (Adult) Prescriptions: New diphenoxylate-atropine [Lomotil] 2.5-0.025 mg tablet 1 tab PO 4X/DAY PRN (Reason: diarrhea) 5 Days Qty: 20 0RF [facility] Referrals: [facility] [Primary Care Provider] - Print Language: Polish
[2024-08-04] MEDS: 0.9% Normal Saline (1000mL) 1,000 ML 999 ML IV (06:41)
[2024-08-04 06:47] LABS: Absolute Lymphocyte Count 2.58 X10^3/uL (0.83-4.51); Absolute Neutrophil Count 5.1 X10^3/uL (2.0-7.7); Basophil# 0.13 X10^3/uL; Basophil% 1.4 % (0-1); Eosinophil# 0.46 X10^3/uL; Eosinophils% 4.8 % (0-5); Hematocrit 46.1 % (40-54); Hemoglobin 15.4 g/dL (13.0-16.5); Lymphocyte # 2.58 X10^3/ul (0.83-4.51); Mean Corp Hgb Conc 33.4 g/dL (32-36); Mean Corpuscular Hgb 28.9 pg (27.0-32.0); Mean Corpuscular Volume 86.7 fL (80-94); Monocyte# 1.21 X10^3/uL; Monocyte% 12.7 % (0-10); NRBC Flagged by Analyzer 0 % (0-5); Neutrophil # 5.13 X10^3/uL (2.7-7.7); Neutrophil % 53.8 % (47-70); Platelet Count 337 K/mm3 (150-450); RBC Distribution Width CV 12.7 % (11.6-14.6); Red Blood Count 5.32 M/mm3 (4.6-6.2); White Blood Count 9.5 K/mm3 (4.4-11.0)
[2024-08-04 07:08] LABS: AST(SGOT) 10 U/L (15-37); Alanine Aminotransfer ALT/SGPT 15 U/L (16-61); Albumin, Serum 3.4 g/dL (3.2-5.0); Alkaline Phosphatase 156 U/L (45-117); Anion Gap 7 (5-15); BUN 9 mg/dL (7-18); BUN/Creat Ratio 7.3 RATIO (10-20); Bilirubin, Direct 0.14 mg/dL (0.00-0.30); Calcium,Total 9.6 mg/dL (8.5-10.1); Chloride 103 mmol/L (98-107); Creatinine, Serum 1.24 mg/dL (0.70-1.30); EST Glomerular Filtration Rate 64 mL/min (>60); Est Glom Filt Rate - Afr Amer 78 mL/min (>60); Estimated Creatinine Clearance 60.74 ml/min; Globulin 4.9 g/dL (2.2-4.2); Glucose 104 mg/dL (74-106); Lipase 28 U/L (13-75); Magnesium 1.9 mg/dL (1.6-2.6); Potassium 3.6 mmol/L (3.5-5.1); Protein, Total 8.3 g/dL (6.4-8.2); Sodium Level 138 mmol/L (136-145)
[2024-08-04 07:24] LABS: Lactic Acid 1.4 mmol/L (0.4-1.9)
[2024-08-04 07:28] VITALS: BP 123/85; PULSE 88; RESP 15; TEMP 36.3; O2SAT 96
[2024-08-04 08:14] VITALS: BP 134/76; PULSE 71; RESP 15; TEMP 36.4; O2SAT 98
--- NOTE | 2024-08-04 08:15 | ED.RN ---
PT REFUSED THE 2ND LITER OF NS AND ALSO STATED HE COULD NOT GIVE A STOOL SAMPLE. PT STATED HE FEELS BETTER AND WANTS TO GO HOME
== END 2024-08-04 08:16 | disposition home or self-care (01) ==
PROVIDERS: Emergency Provider Emergency Medicine; Visit Provider Emergency Medicine
DX: E86.0 Dehydration (principal); R10.84 Generalized abdominal pain; R11.0 Nausea; R19.7 Diarrhea, unspecified; R51.9 Headache, unspecified; R50.9 Fever, unspecified; R53.1 Weakness
CPT/HCPCS: 80048; 80076; 83605; 83690; 83735; 85025; 87631; 96360; 96361; 99283; J7030; A4216